=== PATIENT | female | born 1965 | race African-American/Black ===

== ENCOUNTER 2018-06-23 15:01 | Emergency (ER) | payer OTHER ==
[~2018-06-23] VITALS: Ht 162.6 cm; Wt 90.0 kg
[2018-06-23] MEDS ORDERED: TETANUS, DIPHTHERIA, PERTUSSIS VAC/PF 0.5ML (>7YR OLD) IM ONE (16:00)
[2018-06-23] MEDS ORDERED: LIDOCAINE HCL 1% 20ML VIAL (Pyxis) INJ INFIL ONE (16:00)
[2018-06-23] MEDS ORDERED: LIDOCAINE HCL/PF 1% 10 MG/ML 5ML VIAL IJ ONE (16:15)
[2018-06-23 17:14] LABS: BASOPHILS % 0.9 % (0.0-2.0); EOSINOPHILS % 0.3 % (0.0-5.0); HEMATOCRIT. 35.9 % (36.0-48.0); HEMOGLOBIN. 12.2 g/dL (12.0-16.0); LYMPHOCYTES % 24.1 % (20.0-50.0); MEAN CORPUSCULAR HEMOGLOBIN 33.8 pg (28.0-32.0); MEAN PLATELET VOLUME 7.8 fl (7.4-10.4); MONOCYTES % 8.1 % (2.0-8.0); NEUTROPHILS % 66.6 % (40.0-76.0); PLATELET 418 x1000/uL (130-400); RED BLOOD CELL COUNT 3.62 mill/uL (4.2-5.4)
[2018-06-23 17:26] LABS: CHLORIDE 93 mEq/L (98-107)
[2018-06-23] MEDS ORDERED: SODIUM CHLORIDE 0.9% 1,000 ML IV ONE (18:15)
[2018-06-23] MEDS ORDERED: POTASSIUM CHLORIDE 20MEQ TABLET SR PO ONE (18:15)
[2018-06-23 18:42] VITALS: BP 142/68
== END 2018-06-23 18:47 | disposition home or self-care (01) ==
LOC: ER 15:01
DX: S01.511A Laceration without foreign body of lip, initial encounter (principal); S00.31XA Abrasion of nose, initial encounter; E87.6 Hypokalemia; E11.9 Type 2 diabetes mellitus without complications; E78.00 Pure hypercholesterolemia, unspecified; I10 Essential (primary) hypertension; R55 Syncope and collapse; W19.XXXA Unspecified fall, initial encounter; Y93.89 Activity, other specified; Y92.89 Other specified places as the place of occurrence of the external cause; Y99.8 Other external cause status
CPT/HCPCS: 12011; 36415; 71045; 80053; 84484; 85025; 90471; 90715; 93005; 99285; J3490; J7030; Z7610

== ENCOUNTER 2019-12-06 18:37 | Emergency (ER) | payer OTHER ==
[~2019-12-06] VITALS: Ht 167.6 cm; Wt 120.0 kg
[2019-12-06] MEDS ORDERED: KETOROLAC 60MG/2ML VIAL IM ONE (19:45)
[2019-12-06 19:51] VITALS: BP 160/98
[2019-12-06] MEDS ORDERED: HYDROCODONE/ACETAMINOPHEN 5/325MG TABLET PO ONE (20:15)
== END 2019-12-06 21:17 | disposition home or self-care (01) ==
LOC: ER 18:37
DX: S42.201A Unspecified fracture of upper end of right humerus, initial encounter for closed fracture (principal); E11.9 Type 2 diabetes mellitus without complications; I10 Essential (primary) hypertension; Z98.890 Other specified postprocedural states; W18.39XA Other fall on same level, initial encounter; Y93.89 Activity, other specified; Y92.89 Other specified places as the place of occurrence of the external cause; Y99.8 Other external cause status
CPT/HCPCS: 73030; 96372; 99283; J1885

== ENCOUNTER 2022-05-07 10:44 | Inpatient (IN) | payer OTHER ==
[~2022-05-07] VITALS: Ht 160 cm; Wt 106.8 kg
[2022-05-07 11:26] LABS: HEMATOCRIT. 32.5 % (36.0-48.0); HEMOGLOBIN. 10.6 g/dL (12.0-16.0); MEAN CORPUSCULAR HEMOGLOBIN 36.7 pg (28.0-32.0); MEAN CORPUSCULAR VOLUME 112.8 fL (81.0-99.0); MEAN PLATELET VOLUME 7.7 fl (7.4-10.4); PLATELET 193 x1000/uL (130-400); RED BLOOD CELL COUNT 2.88 mill/uL (4.2-5.4); RED CELL DISTRIBUTION WIDTH 17.3 % (11.6-14.6)
[2022-05-07] MEDS ORDERED: PIPERACILLIN/TAZ 3.375G PREMIX 50 ML IV ONE (11:30)
[2022-05-07] MEDS ORDERED: VANCOMYCIN 1G PREMIX 200 ML IV ONE (11:30)
[2022-05-07 11:36] LABS: CHLORIDE 89 mEq/L (98-107)
[2022-05-07 11:43] LABS: CREATINE KINASE 264 IU/L (26-192); ETHANOL BLOOD < 10 mg/dL
[2022-05-07 12:13] LABS: PLATELET ESTIMATE NORMAL
[2022-05-07] MEDS ORDERED: SODIUM CHLORIDE 0.9% 1,000 ML IV ONE (12:15)
[2022-05-07 12:33] LABS: CLARITY URINE CLEAR (CLEAR); COLOR URINE YELLOW (YELLOW); KETONES URINE 1+ (NEGATIVE); LEUKOCYTE ESTERASE URINE NEGATIVE (NEGATIVE); NITRITE URINE NEGATIVE (NEGATIVE); OCCULT BLOOD URINE 2+ (NEGATIVE); PROTEIN URINE 1+ (NEGATIVE); SPECIFIC GRAVITY URINE 1.012 (1.005-1.030)
[2022-05-07 12:48] LABS: *AMPHETAMINES SCREEN URINE NEGATIVE (NEGATIVE); *BARBITURATES SCREEN URINE NEGATIVE (NEGATIVE); *BENZODIAZEPINES SCREEN URINE NEGATIVE (NEGATIVE); *COCAINE SCREEN URINE NEGATIVE (NEGATIVE); CANNABINOID URINE SCREEN NEGATIVE (NEGATIVE); METHADONE URINE SCREEN NEGATIVE (NEGATIVE); OPIATES URINE SCREEN NEGATIVE (NEGATIVE); PHENCYCLIDINE URINE SCREEN NEGATIVE (NEGATIVE)
[2022-05-07] MEDS ORDERED: VANCOMYCIN 1G PREMIX 200 ML IV NR (13:45)
[2022-05-07] MEDS ORDERED: LEVETIRACETAM 1000MG PREMIX 100 ML IV NR (13:45)
[2022-05-07] MEDS ORDERED: SODIUM CHLORIDE 0.9% 1000ML BAG (SEPSIS BOLUS) IV ONE (14:45)
[2022-05-07] MEDS ORDERED: ASPIRIN 325MG EC TABLET PO NR (16:30)
[2022-05-07] MEDS ORDERED: MAGNESIUM 4 G PREMIX 100 ML IV NR (17:00)
[2022-05-07] MEDS ORDERED: HYDRALAZINE 20MG/ML VIAL IV PRN (21:00)
[2022-05-07] MEDS ORDERED: IPRATROPIUM/ALBUTEROL 0.5-3(2.5)MG/3ML NEB HHN PRN ×2 (21:00→21:15)
[2022-05-07] MEDS ORDERED: ENOXAPARIN 40MG/0.4ML SYR SUBCUT SCH ×2 (21:00→21:15)
[2022-05-07] MEDS ORDERED: INSULIN LISPRO 100 UNITS/ML SUBCUT SCH (21:00)
[2022-05-07] MEDS ORDERED: MORPHINE SULFATE 2 MG/ML CPJ (NOT FOR IM USE) IV PRN (21:00)
[2022-05-07] MEDS ORDERED: HYDROCODONE/ACETAMINOPHEN 5/325MG TABLET PO PRN (21:00)
[2022-05-07] MEDS ORDERED: GUAIFENESIN 200MG/10ML SUGAR FREE UDC PO PRN (21:00)
[2022-05-07] MEDS ORDERED: BLOOD SUGAR DIAGNOSTIC STRIP TEST SCH (21:00)
[2022-05-07] MEDS ORDERED: MAGNESIUM/ALUMINUM HYDROXIDE/SIMETHICONE 30ML UDC PO PRN (21:00)
[2022-05-07] MEDS ORDERED: CLONIDINE 0.1MG TABLET PO PRN (21:00)
[2022-05-07] MEDS ORDERED: ONDANSETRON HCL 4MG/2ML INJ IV PRN (21:00)
[2022-05-07] MEDS ORDERED: DIAZEPAM 5 MG/ML 2ML CPJ IM PRN (21:15)
[2022-05-07 21:25] VITALS: BP 144/81
[2022-05-07] MEDS ORDERED: MIDAZOLAM HCL 2 MG/2 ML VIAL IV PRN (22:00)
[2022-05-07] MEDS ORDERED: SODIUM CHLORIDE 0.9% INJ 3ML FLUSH IVF SCH (22:00)
[2022-05-07] MEDS ORDERED: ENOXAPARIN 30MG/0.3ML SYR SUBCUT SCH (22:30)
[2022-05-07] MEDS: ENOXAPARIN 30MG/0.3ML SYR SUBCUT SCH (23:52)
[2022-05-08] MEDS ORDERED: METF-414 MT (03:07)
[2022-05-08] MEDS ORDERED: AMLO5TAB88 MT (03:07)
[2022-05-08] MEDS ORDERED: ASPI-1406 PO (03:07)
[2022-05-08] MEDS ORDERED: ATOR20TA65 PO (03:07)
[2022-05-08] MEDS: SODIUM CHLORIDE 0.9% INJ 3ML FLUSH IVF SCH ×3 (05:49→22:00)
[2022-05-08] MEDS: BLOOD SUGAR DIAGNOSTIC STRIP TEST SCH ×4 (06:09→21:28)
[2022-05-08] MEDS: DEXTROSE 50% WATER 50ML SYRINGE IV PRN (06:20)
[2022-05-08 06:36] LABS: BASOPHILS % 0.4 % (0.0-2.0); EOSINOPHILS % 0.1 % (0.0-5.0); HEMOGLOBIN. 8.7 g/dL (12.0-16.0); LYMPHOCYTES % 11.3 % (20.0-50.0); MEAN CORPUSCULAR HEMOGLOBIN 36.9 pg (28.0-32.0); MEAN CORPUSCULAR VOLUME 110.4 fL (81.0-99.0); MEAN PLATELET VOLUME 8.4 fl (7.4-10.4); MONOCYTES % 5.1 % (2.0-8.0); NEUTROPHILS % 83.1 % (40.0-76.0); PLATELET 144 x1000/uL (130-400); RED BLOOD CELL COUNT 2.36 mill/uL (4.2-5.4); RED CELL DISTRIBUTION WIDTH 17.4 % (11.6-14.6)
[2022-05-08 06:45] LABS: CHLORIDE 96 mEq/L (98-107)
[2022-05-08] MEDS: INSULIN LISPRO 100 UNITS/ML SUBCUT SCH ×4 (07:50→21:00)
[2022-05-08] MEDS ORDERED: LEVETIRACETAM 500MG PREMIX 100 ML IV SCH ×2 (09:00)
[2022-05-08] MEDS ORDERED: POTASSIUM CHLORIDE INJ 40 MEQ in DEXT 5% WATER 250 ML IV ONE (09:45)
[2022-05-08] MEDS: ENOXAPARIN 30MG/0.3ML SYR SUBCUT SCH ×2 (10:40→21:28)
[2022-05-08] MEDS: ASPIRIN 81MG TABLET PO SCH (10:40)
[2022-05-08] MEDS: KCL 20MEQ/100ML X 2 FOR TOTAL KCL 40MEQ/200ML IV SCH ×3 (11:00→21:43)
[2022-05-08 12:00] VITALS: BP 118/68
[2022-05-08] MEDS: LEVETIRACETAM 500MG PREMIX 100 ML IV SCH ×2 (12:00→15:10)
[2022-05-08] MEDS ORDERED: KCL 20MEQ/100ML X 2 FOR TOTAL KCL 40MEQ/200ML IV SCH (15:15)
[2022-05-08 16:00] VITALS: BP 125/75
[2022-05-08 20:00] VITALS: BP 119/87
[2022-05-08] MEDS ORDERED: METOPROLOL TARTRATE 50MG TABLET PO SCH (21:00)
[2022-05-09] VITALS (7 sets, daily range): BP systolic 83–128; BP diastolic 47–94
[2022-05-09] MEDS: LEVETIRACETAM 500MG PREMIX 100 ML IV SCH ×3 (00:44→21:41)
[2022-05-09] MEDS: SODIUM CHLORIDE 0.9% INJ 3ML FLUSH IVF SCH ×3 (06:03→22:00)
[2022-05-09] MEDS: DEXTROSE 50% WATER 50ML SYRINGE IV PRN (06:09)
[2022-05-09] MEDS: BLOOD SUGAR DIAGNOSTIC STRIP TEST SCH ×4 (06:23→21:41)
[2022-05-09 06:30] LABS: BASOPHILS % 0.5 % (0.0-2.0); EOSINOPHILS % 0.1 % (0.0-5.0); HEMATOCRIT. 25.5 % (36.0-48.0); HEMOGLOBIN. 8.4 g/dL (12.0-16.0); LYMPHOCYTES % 14.3 % (20.0-50.0); MEAN CORPUSCULAR HEMOGLOBIN 37.7 pg (28.0-32.0); MEAN CORPUSCULAR VOLUME 113.7 fL (81.0-99.0); MEAN PLATELET VOLUME 8.7 fl (7.4-10.4); MONOCYTES % 4.6 % (2.0-8.0); NEUTROPHILS % 80.5 % (40.0-76.0); PLATELET 154 x1000/uL (130-400); RED BLOOD CELL COUNT 2.24 mill/uL (4.2-5.4); RED CELL DISTRIBUTION WIDTH 17.4 % (11.6-14.6)
[2022-05-09] MEDS: INSULIN LISPRO 100 UNITS/ML SUBCUT SCH ×4 (07:40→21:00)
[2022-05-09] MEDS: ASPIRIN 81MG TABLET PO SCH ×2 (09:00→12:13)
[2022-05-09 12:23] LABS: CREATINE KINASE 2863 IU/L (26-192)
[2022-05-09] MEDS ORDERED: ENOXAPARIN 120MG/0.8ML SYR SUBCUT NR (13:00)
[2022-05-09] MEDS ORDERED: NALOXONE HCL 0.4MG/ML VIAL IV PRN (15:45)
[2022-05-09 16:06] LABS: INR 1.5; PROTHROMBIN TIME 15.9 sec (9.6-11.0)
[2022-05-09] MEDS ORDERED: SODIUM CHLORIDE 0.9% 500 ML IV ONE (19:15)
[2022-05-09] MEDS: METOPROLOL TARTRATE 100MG TABLET PO SCH (21:00)
[2022-05-09] MEDS: SODIUM CHLORIDE 0.9% 1,000 ML IV SCH (22:23)
[2022-05-10] VITALS (22 sets, daily range): BP systolic 72–124; BP diastolic 35–93
[2022-05-10] MEDS: SODIUM CHLORIDE 0.9% INJ 3ML FLUSH IVF SCH ×3 (05:28→22:04)
[2022-05-10 05:39] LABS: BASOPHILS % 0.4 % (0.0-2.0); EOSINOPHILS % 1.4 % (0.0-5.0); HEMATOCRIT. 25.1 % (36.0-48.0); HEMOGLOBIN. 8.1 g/dL (12.0-16.0); LYMPHOCYTES % 20.5 % (20.0-50.0); MEAN CORPUSCULAR HEMOGLOBIN 37.2 pg (28.0-32.0); MEAN CORPUSCULAR VOLUME 114.9 fL (81.0-99.0); MEAN PLATELET VOLUME 8.6 fl (7.4-10.4); MONOCYTES % 7.1 % (2.0-8.0); NEUTROPHILS % 70.6 % (40.0-76.0); PLATELET 152 x1000/uL (130-400); RED BLOOD CELL COUNT 2.19 mill/uL (4.2-5.4); RED CELL DISTRIBUTION WIDTH 18.2 % (11.6-14.6)
[2022-05-10] MEDS: BLOOD SUGAR DIAGNOSTIC STRIP TEST SCH ×4 (06:33→21:10)
[2022-05-10] MEDS: INSULIN LISPRO 100 UNITS/ML SUBCUT SCH ×4 (07:50→21:00)
[2022-05-10] MEDS: METOPROLOL TARTRATE 100MG TABLET PO SCH ×2 (09:00→20:41)
[2022-05-10] MEDS ORDERED: ENOXAPARIN 120MG/0.8ML SYR SUBCUT SCH (09:00)
[2022-05-10] MEDS: ASPIRIN 81MG TABLET PO SCH (09:00)
[2022-05-10] MEDS: LEVETIRACETAM 500MG PREMIX 100 ML IV SCH ×2 (10:13→21:10)
[2022-05-10] MEDS ORDERED: ENOXAPARIN 40MG/0.4ML SYR SUBCUT SCH (10:30)
[2022-05-10] MEDS: SODIUM CHLORIDE 0.9% 1,000 ML IV SCH (11:20)
[2022-05-10] MEDS ORDERED: NOREPINEPHRINE 32 MG in DEXT 5% WATER 218 ML IV PRN (13:45)
[2022-05-10] MEDS ORDERED: NOREPINEPHRINE 8MG/250ML PMX 250 ML IV PRN (14:15)
[2022-05-10] MEDS: NOREPINEPHRINE 8 MG in DEXTROSE 5% WATER 250 ML IV PRN (15:16)
[2022-05-10] MEDS: ENOXAPARIN 40MG/0.4ML SYR SUBCUT SCH (18:06)
[2022-05-10 19:44] LABS: CREATINE KINASE 1136 IU/L (26-192)
[2022-05-10] MEDS: DIPHENHYDRAMINE 50MG/ML VIAL IV PRN (21:10)
[2022-05-11] VITALS (43 sets, daily range): BP systolic 81–197; BP diastolic 31–105
[2022-05-11] MEDS: DIPHENHYDRAMINE 50MG/ML VIAL IV PRN (01:33)
[2022-05-11 03:05] LABS: CREATINE KINASE 943 IU/L (26-192)
[2022-05-11 06:15] LABS: BASOPHILS % 0.7 % (0.0-2.0); HEMATOCRIT. 23.7 % (36.0-48.0); HEMOGLOBIN. 7.9 g/dL (12.0-16.0); LYMPHOCYTES % 20.5 % (20.0-50.0); MEAN CORPUSCULAR HEMOGLOBIN 37.5 pg (28.0-32.0); MEAN CORPUSCULAR VOLUME 112.1 fL (81.0-99.0); MONOCYTES % 9.7 % (2.0-8.0); NEUTROPHILS % 67.1 % (40.0-76.0); PLATELET 162 x1000/uL (130-400); RED BLOOD CELL COUNT 2.11 mill/uL (4.2-5.4); RED CELL DISTRIBUTION WIDTH 18.6 % (11.6-14.6)
[2022-05-11] MEDS: NOREPINEPHRINE 8 MG in DEXTROSE 5% WATER 250 ML IV PRN (07:33)
[2022-05-11] MEDS: BLOOD SUGAR DIAGNOSTIC STRIP TEST SCH ×4 (08:35→21:23)
[2022-05-11] MEDS: SODIUM CHLORIDE 0.9% 1,000 ML IV SCH (08:54)
[2022-05-11] MEDS: LEVETIRACETAM 500MG PREMIX 100 ML IV SCH ×2 (08:54→21:22)
[2022-05-11] MEDS: METOPROLOL TARTRATE 100MG TABLET PO SCH ×2 (08:56→21:00)
[2022-05-11] MEDS: INSULIN LISPRO 100 UNITS/ML SUBCUT SCH ×4 (08:56→21:00)
[2022-05-11] MEDS ORDERED: POTASSIUM CHLORIDE 20MEQ TABLET SR PO NR (12:00)
[2022-05-11] MEDS: SODIUM CHLORIDE 0.9% INJ 3ML FLUSH IVF SCH ×2 (13:34→22:00)
[2022-05-11] MEDS: ENOXAPARIN 40MG/0.4ML SYR SUBCUT SCH (16:11)
[2022-05-12] VITALS (44 sets, daily range): BP systolic 90–145; BP diastolic 36–90
[2022-05-12] MEDS: SODIUM CHLORIDE 0.9% 1,000 ML IV SCH ×2 (01:36→15:56)
[2022-05-12 05:37] LABS: HEMATOCRIT. 22.6 % (36.0-48.0); HEMOGLOBIN. 7.5 g/dL (12.0-16.0); MEAN CORPUSCULAR HEMOGLOBIN 37.7 pg (28.0-32.0); MEAN CORPUSCULAR VOLUME 113.4 fL (81.0-99.0); MEAN PLATELET VOLUME 7.9 fl (7.4-10.4); PLATELET 148 x1000/uL (130-400); RED BLOOD CELL COUNT 1.99 mill/uL (4.2-5.4); RED CELL DISTRIBUTION WIDTH 18.6 % (11.6-14.6)
[2022-05-12 07:36] LABS: NUCLEATED RED BLOOD CELLS 2 /100 WBC
[2022-05-12 07:37] LABS: PLATELET ESTIMATE NORMAL
[2022-05-12] MEDS: NOREPINEPHRINE 8 MG in DEXTROSE 5% WATER 250 ML IV PRN (07:57)
[2022-05-12] MEDS: BLOOD SUGAR DIAGNOSTIC STRIP TEST SCH ×4 (08:01→20:49)
[2022-05-12] MEDS: LEVETIRACETAM 500MG PREMIX 100 ML IV SCH ×2 (08:01→20:49)
[2022-05-12] MEDS: METOPROLOL TARTRATE 100MG TABLET PO SCH ×2 (08:01→08:32)
[2022-05-12] MEDS: INSULIN LISPRO 100 UNITS/ML SUBCUT SCH ×4 (09:23→20:50)
[2022-05-12] MEDS: MIDODRINE HCL 2.5MG TABLET PO SCH ×3 (10:37→17:41)
[2022-05-12] MEDS ORDERED: POTASSIUM CHLORIDE INJ 40 MEQ in DEXT 5% WATER 250 ML IV SCH (11:00)
[2022-05-12] MEDS: SODIUM CHLORIDE 0.9% INJ 3ML FLUSH IVF SCH ×2 (13:46→22:14)
[2022-05-13] VITALS (22 sets, daily range): BP systolic 100–140; BP diastolic 46–84
[2022-05-13] MEDS: SODIUM CHLORIDE 0.9% 1,000 ML IV SCH (04:16)
[2022-05-13] MEDS: SODIUM CHLORIDE 0.9% INJ 3ML FLUSH IVF SCH ×3 (05:26→21:56)
[2022-05-13 06:12] LABS: HEMATOCRIT. 22.5 % (36.0-48.0); HEMOGLOBIN. 7.4 g/dL (12.0-16.0); MEAN CORPUSCULAR HEMOGLOBIN 37.6 pg (28.0-32.0); MEAN CORPUSCULAR VOLUME 113.6 fL (81.0-99.0); MEAN PLATELET VOLUME 8.3 fl (7.4-10.4); PLATELET 156 x1000/uL (130-400); RED BLOOD CELL COUNT 1.98 mill/uL (4.2-5.4); RED CELL DISTRIBUTION WIDTH 19.1 % (11.6-14.6)
[2022-05-13 06:43] LABS: CHLORIDE 102 mEq/L (98-107)
[2022-05-13 06:56] LABS: CREATINE KINASE 208 IU/L (26-192)
[2022-05-13] MEDS: INSULIN LISPRO 100 UNITS/ML SUBCUT SCH ×4 (07:16→21:00)
[2022-05-13] MEDS: BLOOD SUGAR DIAGNOSTIC STRIP TEST SCH ×4 (07:16→21:00)
[2022-05-13 08:03] LABS: NUCLEATED RED BLOOD CELLS 1 /100 WBC; PLATELET ESTIMATE NORMAL
[2022-05-13] MEDS: LEVETIRACETAM 500MG PREMIX 100 ML IV SCH ×2 (08:40→21:51)
[2022-05-13] MEDS: MIDODRINE HCL 2.5MG TABLET PO SCH ×3 (08:41→17:35)
[2022-05-13] MEDS ORDERED: POTASSIUM CHLORIDE 20MEQ TABLET SR PO NR (09:30)
[2022-05-13] MEDS ORDERED: MAGNESIUM 2 G PREMIX 50 ML IV NR (09:30)
[2022-05-14] VITALS (13 sets, daily range): BP systolic 107–145; BP diastolic 54–87
[2022-05-14] MEDS: SODIUM CHLORIDE 0.9% INJ 3ML FLUSH IVF SCH ×3 (06:00→21:56)
[2022-05-14 06:37] LABS: MEAN CORPUSCULAR HEMOGLOBIN 37.5 pg (28.0-32.0); MEAN CORPUSCULAR VOLUME 113.3 fL (81.0-99.0); MEAN PLATELET VOLUME 8.2 fl (7.4-10.4); PLATELET 213 x1000/uL (130-400); RED BLOOD CELL COUNT 1.79 mill/uL (4.2-5.4); RED CELL DISTRIBUTION WIDTH 19.9 % (11.6-14.6)
[2022-05-14] MEDS: BLOOD SUGAR DIAGNOSTIC STRIP TEST SCH ×4 (06:54→21:55)
[2022-05-14] MEDS: INSULIN LISPRO 100 UNITS/ML SUBCUT SCH ×4 (06:55→21:00)
[2022-05-14 07:27] LABS: CHLORIDE 104 mEq/L (98-107)
[2022-05-14 07:33] LABS: PHOSPHORUS 1.3 mg/dL (2.5-4.9)
[2022-05-14 08:04] LABS: HEMATOCRIT. 20.3 % (36.0-48.0); HEMOGLOBIN. 6.7 g/dL (12.0-16.0)
[2022-05-14] MEDS: MIDODRINE HCL 2.5MG TABLET PO SCH ×3 (09:00→17:50)
[2022-05-14] MEDS ORDERED: POTASSIUM CHLORIDE 20MEQ TABLET SR PO NR (09:15)
[2022-05-14] MEDS: LEVETIRACETAM 500MG PREMIX 100 ML IV SCH ×2 (09:42→21:55)
[2022-05-14] MEDS ORDERED: MAGNESIUM 2 G PREMIX 50 ML IV NR (11:00)
[2022-05-14] MEDS ORDERED: SODIUM PHOS,M-BASIC-D-BASIC 20 MM in DEXT 5% WATER 243.3333 ML IV NR (13:30)
[2022-05-14] MEDS ORDERED: PANTOPRAZOLE SODIUM 40 MG/VIAL IV SCH (15:30)
[2022-05-14 16:45] LABS: TOTAL IRON BINDING CAPACITY 187 ug/dL (250-450)
[2022-05-14 17:40] LABS: PLATELET ESTIMATE NORMAL
[2022-05-14 20:32] LABS: FERRITIN 1042 ng/mL (10-291)
[2022-05-14 20:44] LABS: HEPATITIS B SURFACE ANTIGEN NEGATIVE
[2022-05-14 20:47] LABS: VITAMIN B12 SERUM 1035 pg/mL (211-911)
[2022-05-14] MEDS: PANTOPRAZOLE SODIUM 40 MG/VIAL IV SCH (21:56)
[2022-05-15] VITALS: BP 129/101
[2022-05-15 02:29] LABS: HEMOGLOBIN 8.7 g/dL (12.0-16.0)
[2022-05-15 04:00] VITALS: BP 133/79
[2022-05-15] MEDS: SODIUM CHLORIDE 0.9% INJ 3ML FLUSH IVF SCH ×3 (06:00→21:00)
[2022-05-15] MEDS: BLOOD SUGAR DIAGNOSTIC STRIP TEST SCH ×4 (06:49→21:00)
[2022-05-15] MEDS: INSULIN LISPRO 100 UNITS/ML SUBCUT SCH ×4 (07:45→21:00)
[2022-05-15 08:00] VITALS: BP 137/82
[2022-05-15 08:00] LABS: BASOPHILS % 0.3 % (0.0-2.0); EOSINOPHILS % 1.4 % (0.0-5.0); HEMATOCRIT. 27.1 % (36.0-48.0); HEMOGLOBIN. 9.2 g/dL (12.0-16.0); LYMPHOCYTES % 21.9 % (20.0-50.0); MEAN CORPUSCULAR HEMOGLOBIN 35.4 pg (28.0-32.0); MEAN CORPUSCULAR VOLUME 104.4 fL (81.0-99.0); MEAN PLATELET VOLUME 7.9 fl (7.4-10.4); MONOCYTES % 12.1 % (2.0-8.0); NEUTROPHILS % 64.3 % (40.0-76.0); PLATELET 283 x1000/uL (130-400); RED CELL DISTRIBUTION WIDTH 24.9 % (11.6-14.6)
[2022-05-15 08:29] LABS: CHLORIDE 103 mEq/L (98-107); PHOSPHORUS 2.1 mg/dL (2.5-4.9)
[2022-05-15] MEDS ORDERED: POTASSIUM CHLORIDE 20MEQ TABLET SR PO NR (09:15)
[2022-05-15] MEDS ORDERED: MAGNESIUM 2 G PREMIX 50 ML IV NR (10:00)
[2022-05-15] MEDS: PANTOPRAZOLE SODIUM 40 MG/VIAL IV SCH (10:47)
[2022-05-15] MEDS: LEVETIRACETAM 500MG PREMIX 100 ML IV SCH ×2 (10:49→21:00)
[2022-05-15] MEDS: MIDODRINE HCL 2.5MG TABLET PO SCH ×3 (10:49→17:00)
[2022-05-15 11:14] LABS: PLATELET ESTIMATE NORMAL
[2022-05-15 12:00] VITALS: BP 150/96
[2022-05-15] MEDS ORDERED: SODIUM PHOS,M-BASIC-D-BASIC 20 MM in DEXT 5% WATER 243.3333 ML IV NR (12:00)
[2022-05-15] MEDS: DIPHENHYDRAMINE 50MG/ML VIAL IV PRN ×2 (12:18→18:26)
[2022-05-15 16:00] VITALS: BP 131/85
[2022-05-15 20:00] VITALS: BP 153/76
[2022-05-15] MEDS: ACETAMINOPHEN 325MG TABLET PO PRN (21:07)
[2022-05-16] VITALS: BP 158/80
[2022-05-16] MEDS: DIPHENHYDRAMINE 50MG/ML VIAL IV PRN (01:19)
[2022-05-16 04:00] VITALS: BP 154/87
[2022-05-16] MEDS: SODIUM CHLORIDE 0.9% INJ 3ML FLUSH IVF SCH ×2 (05:36→21:02)
[2022-05-16 07:21] LABS: BASOPHILS % 0.5 % (0.0-2.0); EOSINOPHILS % 1.2 % (0.0-5.0); HEMATOCRIT. 26.5 % (36.0-48.0); HEMOGLOBIN. 9.1 g/dL (12.0-16.0); LYMPHOCYTES % 16.6 % (20.0-50.0); MEAN CORPUSCULAR HEMOGLOBIN 35.6 pg (28.0-32.0); MEAN CORPUSCULAR VOLUME 104.1 fL (81.0-99.0); MEAN PLATELET VOLUME 7.7 fl (7.4-10.4); MONOCYTES % 10.9 % (2.0-8.0); NEUTROPHILS % 70.8 % (40.0-76.0); PLATELET 346 x1000/uL (130-400); RED BLOOD CELL COUNT 2.54 mill/uL (4.2-5.4); RED CELL DISTRIBUTION WIDTH 24.2 % (11.6-14.6)
[2022-05-16 07:41] LABS: CHLORIDE 103 mEq/L (98-107)
[2022-05-16] MEDS: INSULIN LISPRO 100 UNITS/ML SUBCUT SCH ×4 (07:45→21:00)
[2022-05-16 07:50] LABS: PHOSPHORUS 2.9 mg/dL (2.5-4.9)
[2022-05-16 08:00] VITALS: BP 156/74
[2022-05-16] MEDS: MIDODRINE HCL 2.5MG TABLET PO SCH ×3 (09:00→17:00)
[2022-05-16] MEDS: LEVETIRACETAM 500MG PREMIX 100 ML IV SCH ×2 (09:59→21:01)
[2022-05-16] MEDS: PANTOPRAZOLE SODIUM 40 MG/VIAL IV SCH (10:00)
[2022-05-16] MEDS ORDERED: MAGNESIUM 4 G PREMIX 100 ML IV ONE (11:00)
[2022-05-16 12:00] VITALS: BP 143/88
[2022-05-16] MEDS: BLOOD SUGAR DIAGNOSTIC STRIP TEST SCH ×3 (12:20→21:01)
[2022-05-16 16:00] VITALS: BP 126/76
[2022-05-16 20:00] VITALS: BP 158/94
[2022-05-17] VITALS (7 sets, daily range): BP systolic 124–159; BP diastolic 76–95
[2022-05-17] MEDS: BLOOD SUGAR DIAGNOSTIC STRIP TEST SCH ×4 (05:52→20:56)
[2022-05-17] MEDS: SODIUM CHLORIDE 0.9% INJ 3ML FLUSH IVF SCH ×3 (05:52→20:57)
[2022-05-17] MEDS: INSULIN LISPRO 100 UNITS/ML SUBCUT SCH ×4 (07:42→20:56)
[2022-05-17 08:34] LABS: BASOPHILS % 0.6 % (0.0-2.0); HEMATOCRIT. 27.2 % (36.0-48.0); LYMPHOCYTES % 15.7 % (20.0-50.0); MEAN CORPUSCULAR HEMOGLOBIN 34.9 pg (28.0-32.0); MEAN CORPUSCULAR VOLUME 104.9 fL (81.0-99.0); MEAN PLATELET VOLUME 7.8 fl (7.4-10.4); MONOCYTES % 9.8 % (2.0-8.0); NEUTROPHILS % 72.9 % (40.0-76.0); PLATELET 429 x1000/uL (130-400); RED BLOOD CELL COUNT 2.59 mill/uL (4.2-5.4); RED CELL DISTRIBUTION WIDTH 23.1 % (11.6-14.6)
[2022-05-17 08:54] LABS: CHLORIDE 100 mEq/L (98-107)
[2022-05-17] MEDS: MIDODRINE HCL 2.5MG TABLET PO SCH (09:00)
[2022-05-17] MEDS: PANTOPRAZOLE SODIUM 40 MG/VIAL IV SCH (09:02)
[2022-05-17] MEDS: LEVETIRACETAM 500MG PREMIX 100 ML IV SCH (09:02)
[2022-05-17] MEDS ORDERED: MAGNESIUM 1 G PREMIX 100 ML IV NR (14:00)
[2022-05-17] MEDS: ACETAMINOPHEN 325MG TABLET PO PRN (17:51)
[2022-05-17] MEDS: AMLODIPINE 2.5MG TABLET PO SCH (20:56)
[2022-05-17] MEDS: LEVETIRACETAM 500MG TABLET PO SCH (20:57)
[2022-05-18 03:52] VITALS: BP 155/93
[2022-05-18] MEDS: SODIUM CHLORIDE 0.9% INJ 3ML FLUSH IVF SCH ×3 (06:00→21:11)
[2022-05-18] MEDS: BLOOD SUGAR DIAGNOSTIC STRIP TEST SCH ×4 (06:13→20:48)
[2022-05-18] MEDS: INSULIN LISPRO 100 UNITS/ML SUBCUT SCH ×4 (07:30→20:48)
[2022-05-18 08:07] LABS: BASOPHILS % 0.6 % (0.0-2.0); EOSINOPHILS % 0.8 % (0.0-5.0); HEMATOCRIT. 27.2 % (36.0-48.0); HEMOGLOBIN. 9.1 g/dL (12.0-16.0); LYMPHOCYTES % 13.3 % (20.0-50.0); MEAN CORPUSCULAR HEMOGLOBIN 34.9 pg (28.0-32.0); MEAN CORPUSCULAR VOLUME 104.1 fL (81.0-99.0); MEAN PLATELET VOLUME 7.9 fl (7.4-10.4); MONOCYTES % 9.4 % (2.0-8.0); NEUTROPHILS % 75.9 % (40.0-76.0); PLATELET 494 x1000/uL (130-400); RED BLOOD CELL COUNT 2.61 mill/uL (4.2-5.4); RED CELL DISTRIBUTION WIDTH 23.3 % (11.6-14.6)
[2022-05-18 08:13] LABS: CHLORIDE 100 mEq/L (98-107)
[2022-05-18 08:30] VITALS: BP 147/83
[2022-05-18] MEDS ORDERED: NALOXONE HCL 0.4MG/ML VIAL IV PRN (09:15)
[2022-05-18] MEDS: PANTOPRAZOLE SODIUM 40 MG/VIAL IV SCH (09:16)
[2022-05-18] MEDS: AMLODIPINE 2.5MG TABLET PO SCH ×2 (09:17→21:11)
[2022-05-18] MEDS: HYDROCODONE/ACETAMINOPHEN 5/325MG TABLET PO PRN ×2 (09:17→15:32)
[2022-05-18] MEDS: LEVETIRACETAM 500MG TABLET PO SCH ×2 (09:17→21:11)
[2022-05-18 12:30] VITALS: BP 124/77
[2022-05-18 15:38] VITALS: BP 103/48
[2022-05-18 20:00] VITALS: BP 121/74
[2022-05-19] VITALS: BP 151/87
[2022-05-19 04:00] VITALS: BP 146/84
[2022-05-19] MEDS: SODIUM CHLORIDE 0.9% INJ 3ML FLUSH IVF SCH ×3 (06:21→21:34)
[2022-05-19] MEDS: BLOOD SUGAR DIAGNOSTIC STRIP TEST SCH ×4 (06:21→21:17)
[2022-05-19 07:12] LABS: BASOPHILS % 0.5 % (0.0-2.0); EOSINOPHILS % 0.9 % (0.0-5.0); HEMATOCRIT. 28.8 % (36.0-48.0); HEMOGLOBIN. 9.4 g/dL (12.0-16.0); LYMPHOCYTES % 16.7 % (20.0-50.0); MEAN CORPUSCULAR HEMOGLOBIN 34.2 pg (28.0-32.0); MEAN CORPUSCULAR VOLUME 104.6 fL (81.0-99.0); MEAN PLATELET VOLUME 7.7 fl (7.4-10.4); NEUTROPHILS % 72.9 % (40.0-76.0); PLATELET 589 x1000/uL (130-400); RED BLOOD CELL COUNT 2.75 mill/uL (4.2-5.4); RED CELL DISTRIBUTION WIDTH 22.9 % (11.6-14.6)
[2022-05-19 07:27] LABS: CHLORIDE 98 mEq/L (98-107)
[2022-05-19] MEDS: INSULIN LISPRO 100 UNITS/ML SUBCUT SCH ×4 (07:50→21:00)
[2022-05-19 08:00] VITALS: BP 138/80
[2022-05-19] MEDS: PANTOPRAZOLE SODIUM 40 MG/VIAL IV SCH (08:49)
[2022-05-19] MEDS: LEVETIRACETAM 500MG TABLET PO SCH ×2 (08:49→21:35)
[2022-05-19] MEDS: AMLODIPINE 2.5MG TABLET PO SCH ×2 (08:50→21:35)
[2022-05-19] MEDS ORDERED: POTASSIUM CHLORIDE 20MEQ TABLET SR PO SCH (10:00)
[2022-05-19 12:00] VITALS: BP 141/83
[2022-05-19] MEDS ORDERED: COLCHICINE 0.6MG TABLET PO NR ×2 (15:00→17:00)
[2022-05-19 16:30] VITALS: BP 140/84
[2022-05-19 20:00] VITALS: BP 130/80
[2022-05-20] VITALS: BP 127/76
[2022-05-20 04:00] VITALS: BP 140/83
[2022-05-20] MEDS: SODIUM CHLORIDE 0.9% INJ 3ML FLUSH IVF SCH ×3 (05:22→21:43)
[2022-05-20] MEDS: BLOOD SUGAR DIAGNOSTIC STRIP TEST SCH ×4 (06:27→20:50)
[2022-05-20] MEDS: INSULIN LISPRO 100 UNITS/ML SUBCUT SCH ×4 (07:50→20:50)
[2022-05-20 08:15] LABS: BASOPHILS % 0.8 % (0.0-2.0); EOSINOPHILS % 0.9 % (0.0-5.0); HEMOGLOBIN. 9.9 g/dL (12.0-16.0); LYMPHOCYTES % 18.2 % (20.0-50.0); MEAN CORPUSCULAR HEMOGLOBIN 34.2 pg (28.0-32.0); MEAN CORPUSCULAR VOLUME 103.5 fL (81.0-99.0); MEAN PLATELET VOLUME 7.6 fl (7.4-10.4); MONOCYTES % 11.9 % (2.0-8.0); NEUTROPHILS % 68.2 % (40.0-76.0); PLATELET 656 x1000/uL (130-400); RED CELL DISTRIBUTION WIDTH 22.2 % (11.6-14.6)
[2022-05-20 08:30] VITALS: BP 120/80
[2022-05-20] MEDS: PANTOPRAZOLE SODIUM 40 MG/VIAL IV SCH (09:05)
[2022-05-20] MEDS: LEVETIRACETAM 500MG TABLET PO SCH ×2 (09:05→21:43)
[2022-05-20] MEDS: AMLODIPINE 2.5MG TABLET PO SCH ×2 (09:06→20:50)
[2022-05-20 09:22] LABS: CHLORIDE 97 mEq/L (98-107)
[2022-05-20 09:33] LABS: PHOSPHORUS 3.4 mg/dL (2.5-4.9)
[2022-05-20] MEDS ORDERED: POTASSIUM CHLORIDE 20MEQ TABLET SR PO SCH (10:00)
[2022-05-20 12:00] VITALS: BP 139/82
[2022-05-20] MEDS ORDERED: MAGNESIUM 2 G PREMIX 50 ML IV NR (12:30)
[2022-05-20] MEDS: ALLOPURINOL 100 MG TABLET PO SCH (12:47)
[2022-05-20 16:02] VITALS: BP 114/67
[2022-05-20] MEDS: ASPIRIN 81MG TABLET PO SCH (17:27)
[2022-05-20 20:00] VITALS: BP 102/71
[2022-05-20] MEDS: HYDROCODONE/ACETAMINOPHEN 5/325MG TABLET PO PRN (21:43)
[2022-05-21] VITALS: BP 112/68
[2022-05-21 04:00] VITALS: BP 121/76
[2022-05-21] MEDS: SODIUM CHLORIDE 0.9% INJ 3ML FLUSH IVF SCH ×3 (06:16→22:00)
[2022-05-21] MEDS: BLOOD SUGAR DIAGNOSTIC STRIP TEST SCH ×4 (06:30→21:49)
[2022-05-21] MEDS: INSULIN LISPRO 100 UNITS/ML SUBCUT SCH ×4 (07:50→21:00)
[2022-05-21 07:53] LABS: BASOPHILS % 1.5 % (0.0-2.0); EOSINOPHILS % 1.5 % (0.0-5.0); HEMATOCRIT. 28.3 % (36.0-48.0); HEMOGLOBIN. 9.5 g/dL (12.0-16.0); LYMPHOCYTES % 24.2 % (20.0-50.0); MEAN CORPUSCULAR HEMOGLOBIN 34.3 pg (28.0-32.0); MEAN CORPUSCULAR VOLUME 102.5 fL (81.0-99.0); MEAN PLATELET VOLUME 7.8 fl (7.4-10.4); MONOCYTES % 10.6 % (2.0-8.0); NEUTROPHILS % 62.2 % (40.0-76.0); PLATELET 635 x1000/uL (130-400); RED BLOOD CELL COUNT 2.77 mill/uL (4.2-5.4); RED CELL DISTRIBUTION WIDTH 22.4 % (11.6-14.6)
[2022-05-21 07:54] LABS: CHLORIDE 99 mEq/L (98-107)
[2022-05-21 08:00] VITALS: BP 115/72
[2022-05-21 08:10] LABS: PHOSPHORUS 3.8 mg/dL (2.5-4.9)
[2022-05-21] MEDS: PANTOPRAZOLE SODIUM 40 MG/VIAL IV SCH (09:05)
[2022-05-21] MEDS: ASPIRIN 81MG TABLET PO SCH (09:06)
[2022-05-21] MEDS: LEVETIRACETAM 500MG TABLET PO SCH ×2 (09:06→20:52)
[2022-05-21] MEDS: ALLOPURINOL 100 MG TABLET PO SCH (09:06)
[2022-05-21] MEDS: AMLODIPINE 2.5MG TABLET PO SCH ×2 (09:06→20:52)
[2022-05-21 12:07] VITALS: BP 108/64
[2022-05-21 16:00] VITALS: BP 117/72
[2022-05-21 20:00] VITALS: BP 102/69
[2022-05-22] VITALS: BP 133/80
[2022-05-22 04:00] VITALS: BP 128/86
[2022-05-22] MEDS: SODIUM CHLORIDE 0.9% INJ 3ML FLUSH IVF SCH ×3 (06:00→22:00)
[2022-05-22 06:35] LABS: BASOPHILS % 2.3 % (0.0-2.0); EOSINOPHILS % 1.7 % (0.0-5.0); HEMATOCRIT. 28.7 % (36.0-48.0); HEMOGLOBIN. 9.7 g/dL (12.0-16.0); LYMPHOCYTES % 24.2 % (20.0-50.0); MEAN CORPUSCULAR HEMOGLOBIN 34.5 pg (28.0-32.0); MEAN CORPUSCULAR VOLUME 101.8 fL (81.0-99.0); MEAN PLATELET VOLUME 7.4 fl (7.4-10.4); MONOCYTES % 10.9 % (2.0-8.0); NEUTROPHILS % 60.9 % (40.0-76.0); PLATELET 652 x1000/uL (130-400); RED BLOOD CELL COUNT 2.81 mill/uL (4.2-5.4); RED CELL DISTRIBUTION WIDTH 22.6 % (11.6-14.6)
[2022-05-22 07:29] LABS: CHLORIDE 97 mEq/L (98-107)
[2022-05-22] MEDS: INSULIN LISPRO 100 UNITS/ML SUBCUT SCH ×4 (07:50→20:40)
[2022-05-22] MEDS: BLOOD SUGAR DIAGNOSTIC STRIP TEST SCH ×4 (07:53→20:40)
[2022-05-22 08:17] VITALS: BP 127/78
[2022-05-22] MEDS: ASPIRIN 81MG TABLET PO SCH (08:51)
[2022-05-22] MEDS: LEVETIRACETAM 500MG TABLET PO SCH ×2 (08:52→20:39)
[2022-05-22] MEDS: PANTOPRAZOLE SODIUM 40 MG/VIAL IV SCH (08:52)
[2022-05-22] MEDS: ALLOPURINOL 100 MG TABLET PO SCH (08:52)
[2022-05-22] MEDS: AMLODIPINE 2.5MG TABLET PO SCH ×2 (08:52→20:39)
[2022-05-22] MEDS: DOCUSATE SODIUM 100MG CAPSULE PO PRN (08:59)
[2022-05-22] MEDS ORDERED: POTASSIUM CHLORIDE 20MEQ TABLET SR PO SCH (09:00)
[2022-05-22 12:00] VITALS: BP 141/72
[2022-05-22 16:02] VITALS: BP 110/70
[2022-05-22 20:00] VITALS: BP 145/85
[2022-05-23] VITALS: BP 162/97
[2022-05-23] MEDS: HYDROCODONE/ACETAMINOPHEN 5/325MG TABLET PO PRN ×2 (00:38→05:33)
[2022-05-23 04:00] VITALS: BP 102/62
[2022-05-23] MEDS: BLOOD SUGAR DIAGNOSTIC STRIP TEST SCH ×4 (05:26→21:35)
[2022-05-23] MEDS: DOCUSATE SODIUM 100MG CAPSULE PO PRN (05:32)
[2022-05-23] MEDS: SODIUM CHLORIDE 0.9% INJ 3ML FLUSH IVF SCH ×2 (06:00→13:26)
[2022-05-23] MEDS: INSULIN LISPRO 100 UNITS/ML SUBCUT SCH ×4 (07:33→21:40)
[2022-05-23 07:37] LABS: CHLORIDE 97 mEq/L (98-107)
[2022-05-23 07:38] LABS: BASOPHILS % 1.6 % (0.0-2.0); EOSINOPHILS % 1.8 % (0.0-5.0); HEMATOCRIT. 27.9 % (36.0-48.0); HEMOGLOBIN. 9.5 g/dL (12.0-16.0); LYMPHOCYTES % 29.8 % (20.0-50.0); MEAN CORPUSCULAR HEMOGLOBIN 34.8 pg (28.0-32.0); MEAN CORPUSCULAR VOLUME 102.5 fL (81.0-99.0); MEAN PLATELET VOLUME 7.3 fl (7.4-10.4); NEUTROPHILS % 55.8 % (40.0-76.0); PLATELET 651 x1000/uL (130-400); RED BLOOD CELL COUNT 2.73 mill/uL (4.2-5.4); RED CELL DISTRIBUTION WIDTH 22.3 % (11.6-14.6)
[2022-05-23 08:00] VITALS: BP 108/65
[2022-05-23] MEDS: AMLODIPINE 2.5MG TABLET PO SCH ×2 (08:30→21:35)
[2022-05-23] MEDS: LEVETIRACETAM 500MG TABLET PO SCH ×2 (08:30→21:35)
[2022-05-23] MEDS: PANTOPRAZOLE SODIUM 40 MG/VIAL IV SCH (08:30)
[2022-05-23] MEDS: ASPIRIN 81MG TABLET PO SCH (08:30)
[2022-05-23] MEDS: ALLOPURINOL 100 MG TABLET PO SCH (08:31)
[2022-05-23 12:00] VITALS: BP 123/72
[2022-05-23 16:30] VITALS: BP 104/65
[2022-05-24] VITALS: BP 112/60
[2022-05-24 04:00] VITALS: BP 126/80
[2022-05-24] MEDS: SODIUM CHLORIDE 0.9% INJ 3ML FLUSH IVF SCH ×2 (06:41→13:47)
[2022-05-24] MEDS: BLOOD SUGAR DIAGNOSTIC STRIP TEST SCH ×2 (06:42→11:36)
[2022-05-24] MEDS: INSULIN LISPRO 100 UNITS/ML SUBCUT SCH ×2 (07:40→11:36)
[2022-05-24 08:06] LABS: BASOPHILS % 2.7 % (0.0-2.0); EOSINOPHILS % 2.2 % (0.0-5.0); HEMATOCRIT. 31.1 % (36.0-48.0); HEMOGLOBIN. 10.2 g/dL (12.0-16.0); LYMPHOCYTES % 28.9 % (20.0-50.0); MEAN CORPUSCULAR HEMOGLOBIN 33.7 pg (28.0-32.0); MEAN CORPUSCULAR VOLUME 102.5 fL (81.0-99.0); MEAN PLATELET VOLUME 7.5 fl (7.4-10.4); MONOCYTES % 6.9 % (2.0-8.0); NEUTROPHILS % 59.3 % (40.0-76.0); PLATELET 682 x1000/uL (130-400); RED BLOOD CELL COUNT 3.04 mill/uL (4.2-5.4); RED CELL DISTRIBUTION WIDTH 22.2 % (11.6-14.6)
[2022-05-24 08:13] VITALS: BP 128/92
[2022-05-24 08:25] LABS: CHLORIDE 98 mEq/L (98-107)
[2022-05-24] MEDS: ASPIRIN 81MG TABLET PO SCH (08:39)
[2022-05-24] MEDS: PANTOPRAZOLE SODIUM 40 MG/VIAL IV SCH (08:39)
[2022-05-24] MEDS: AMLODIPINE 2.5MG TABLET PO SCH (08:39)
[2022-05-24] MEDS: ALLOPURINOL 100 MG TABLET PO SCH (08:39)
[2022-05-24] MEDS: LEVETIRACETAM 500MG TABLET PO SCH (08:39)
[2022-05-24 12:00] VITALS: BP 103/67
[2022-05-24 13:27] VITALS: BP 103/67
== END 2022-05-24 14:40 | disposition short-term general hospital (02) | DRG 871 ==
LOC: ER 10:54 → 6WST 14:48 → ENRESERV 19:20 → ER 21:04 → 6WST 05-09 13:10 → CVICU 05-10 14:40 → 6WST 05-13 10:50
PROVIDERS: ADMIT Internal Medicine; ATTEND Internal Medicine
PROC: 4A00X4Z Measurement of Central Nervous Electrical Activity, External Approach (ICD-10-PCS; 2022-05-10)
PROC: 30233N1 Transfusion of Nonautologous Red Blood Cells into Peripheral Vein, Percutaneous Approach (ICD-10-PCS; principal; 2022-05-14)
PROC: 4A00X4Z Measurement of Central Nervous Electrical Activity, External Approach (ICD-10-PCS; 2022-05-14)
DX: A41.9 Sepsis, unspecified organism (principal); I21.4 Non-ST elevation (NSTEMI) myocardial infarction; J96.00 Acute respiratory failure, unspecified whether with hypoxia or hypercapnia; N17.0 Acute kidney failure with tubular necrosis; E87.2 Acidosis; M62.82 Rhabdomyolysis; J90 Pleural effusion, not elsewhere classified; G40.89 Other seizures; Z68.41 Body mass index [BMI] 40.0-44.9, adult; I69.354 Hemiplegia and hemiparesis following cerebral infarction affecting left non-dominant side; E83.42 Hypomagnesemia; Z20.822 Contact with and (suspected) exposure to COVID-19; E11.9 Type 2 diabetes mellitus without complications; E66.01 Morbid (severe) obesity due to excess calories; I95.9 Hypotension, unspecified; R16.0 Hepatomegaly, not elsewhere classified; R26.81 Unsteadiness on feet; R91.1 Solitary pulmonary nodule; D53.9 Nutritional anemia, unspecified; E87.6 Hypokalemia; F10.10 Alcohol abuse, uncomplicated; I10 Essential (primary) hypertension; R74.01 Elevation of levels of liver transaminase levels; I25.10 Atherosclerotic heart disease of native coronary artery without angina pectoris; I27.20 Pulmonary hypertension, unspecified; R77.8 Other specified abnormalities of plasma proteins; K76.0 Fatty (change of) liver, not elsewhere classified; M10.9 Gout, unspecified; M47.812 Spondylosis without myelopathy or radiculopathy, cervical region; R32 Unspecified urinary incontinence; I25.2 Old myocardial infarction; Z79.84 Long term (current) use of oral hypoglycemic drugs
CPT/HCPCS: 36415; 71045; 71250; 76700; 76770; 80048; 80053; 80061; 80076; 80305; 80320; 81003; 82140; 82248; 82378; 82550; 82607; 82728; 82746; 82962; 83540; 83550; 83605; 83735; 84100; 84145; 84443; 84484; 84550; 85014; 85018; 85025; 85044; 86705; 86709; 86803; 86850; 86900; 86920; 87340; 87426; 93005; 93306; 93970; 94640; 95816; 97110; 97116; 97161; 97162; 97165; 97166; 97530; 97535; 99291; C1893; C9113; C9803; J1200; J1650; J1815; J1953; J2270; J2405; J2543; J3370; J3475; J3480; J3490; J7030; J7060; P9016; A4315; G0480